=== PATIENT | male | born 1955 | race African-American/Black ===

== ENCOUNTER 2018-05-21 07:54 | Day surgery (SDC) | payer MEDICARE, MEDICAID ==
--- NOTE | 2018-05-18 11:25 | Opthalmology H&P ---
Ophthalmology H&P H&P Chief Complaint: decreased vision in right eye HPI Vision Affects Ability to: read, manage personal affairs HPI Narrative Blurry Vision Exam Visual Acuity: OD 20/100 OS 20/60 Tension: OD 16 OS 16 Eye Exam: normal OU: external exam, palpebral fissure-width, marginal reflex distance, levator function, corneas, anterior chambers, fundus exam; findings: lens - NS Cataract OD Assessment/Plan Treatment Plan: cataract extraction w/ lens implant Goals of Treatment: improvement of vision, enhance quality of life Attestation Attestation The risks and benefits of the surgery as well as alternative procedures were explained to the patient in detail. Aldo Hester MD May 18, 2018 11:25
--- NOTE | 2018-05-18 11:26 | Pre-Procedure Note/Attestation ---
Pre-Procedure Note/Attestation Complete Prior to Procedure Planned Procedure: right Procedure Narrative: Cataract Extraction With Intraocular Lens Implant Right Eye Indications for Procedure Pre-Operative Diagnosis: Nuclear Sclerotic/ Cortical Cataract Right Eye Attestation I attest that I discussed the nature of the procedure; its benefits; risks and complications; and alternatives (and the risks and benefits of such alternatives ), prior to the procedure, with the patient (or the patient's legal loss prevention representative). I attest that, if there was a reasonable possibility of needing a blood transfusion, the patient (or the patient's legal loss prevention representative) was given the [facility] standardized written summary, pursuant to the [employer] Blood Safety Act ([place] Health and Safety Code # 1645, as amended). I attest that I re-evaluated the patient just prior to the surgery and that there has been no change in the patient's H&P, except as documented below: Aldo Hester MD May 18, 2018 11:26
[2018-05-21] VITALS (7 sets, daily range): BP systolic 122–139; BP diastolic 71–95
[~2018-05-21] VITALS: Ht 165.1 cm; Wt 73.0 kg
[~2018-05-21 07:54] MED LIST: Akten 3.5% 1ml Btl RIGHT EYE ONE; BENAZEPRIL HCL10 MG ORAL; Dexamethasone 4mg/ml vial ONE; Maxitrol Opth Oint 3.5gm ONE; Pilocarpine 1% Opth 15ml Soln ONE; Pred Forte 1% Opth Susp 1ml ONE; Proparacaine 0.5% Opth Soln 15ml RIGHT EYE ONE; Tetracaine 0.5% Opth 4ml Soln RIGHT EYE ONE
[2018-05-21] MEDS ORDERED: BSS 500ml btl ONE (10:31)
[2018-05-21] MEDS ORDERED: Povidone-Iodine 5% opth solution ONE (10:31)
[2018-05-21] MEDS ORDERED: EPINEPHrine 1mg/1ml Amp ONE (10:31)
[2018-05-21] MEDS ORDERED: BSS 15ml BTL ONE (10:31)
[2018-05-21] MEDS ORDERED: Sodium Hyaluronate 14 mg/ml 0.85ml ONE (10:31)
[2018-05-21] MEDS: Diclofenac Sod 0.1% Op Soln RIGHT EYE SCH ×3 (12:01→12:15)
[2018-05-21] MEDS: Cyclopentolate 1% Opth Sol 2ml RIGHT EYE SCH ×3 (12:01→12:15)
[2018-05-21] MEDS: Tropicamide 1% Opth 15ml Soln RIGHT EYE SCH ×3 (12:01→12:16)
[2018-05-21] MEDS: Tobramycin Op Soln 0.3% 5ml RIGHT EYE SCH ×3 (12:01→12:16)
[2018-05-21] MEDS: Phenylephrine 10% Opth Soln 5ml RIGHT EYE SCH ×3 (12:01→12:15)
[2018-05-21] MEDS ORDERED: ADVAIR HFA 115-12 GM INH (12:04)
[2018-05-21] MEDS ORDERED: LR 1000ml 1,000 ML IVLG SCH (12:05)
--- NOTE | 2018-05-21 12:05 | Anethesia Preoperative Eval ---
Anesthesia Pre-op PMH/ROS General Date of Evaluation: May 21, 2018 Anesthesiologist: Saad ASA Score: ASA 2 Mallampati Score Class I : Soft palate, uvula, fauces, pillars visible Class II: Soft palate, uvula, fauces visible Class III: Soft palate, base of uvula visible Class IV: Only hard plate visible Mallampati Classification: Class II Surgeon: Kacie Diagnosis: Right cataract Surgical Procedure: Right cataract extraction with IOL Anesthesia History: none Family History: no anesthesia problems Allergies: Coded Allergies: No Known Allergies (Unverified , 05/21/18) Medications: see eMAR Patient NPO?: Yes NPO Date: May 20, 2018 NPO Time: 22:00 Past Medical History Cardiovascular: Reports: HTN; Denies: CAD, VA, valve dz, arrhythmia, other Pulmonary: Reports: asthma; Denies: COPD, MARCIE, other Gastrointestinal/Genitourinary: Denies: GERD, CRI, ESRD, other Neurologic/Psychiatric: Denies: dementia, CVA, depression/anxiety, TIA, other Endocrine: Denies: DM, hypothyroidism, steroids, other HEENT: Denies: cataract (L), cataract (R), glaucoma, [place] (L), [place] (R), other Hematology/Immune: Denies: anemia, DVT, bleeding disorder, other Musculoskeletal/Integumentary: Denies: OA, RA, DJD, DDD, edema, other PSxH Narrative: Left cataract sx Anesthesia Pre-op Phys. Exam Physician Exam Last Vital Signs Date Time Temp Pulse Resp B/P (MAP) Pulse Ox O2 Delivery O2 Flow Rate FiO2 05/21/18 11:58 98.0 70 18 124/80 97 Room Air Constitutional: NAD Cardiovascular: RRR Respiratory: CTA Airway Exam Mallampati Score: Class II MO: full ROM: full Anesthesia Pre-op A/P Labs see chart Studies Pre-op Studies: EKG - sr Risk Assessment & Plan Assessment: ASA II Plan: MAC Status Change Before Surgery: No Pre-Antibiotics Drug: N/A Mary Kate Abbott MD May 21, 2018 12:05
[2018-05-21] MEDS ORDERED: DiphenhydrAMINE 50mg/ml Inj IVP PRN (12:15)
[2018-05-21] MEDS ORDERED: LR 1000ml ONE (13:22)
[2018-05-21] MEDS ORDERED: fentaNYL 100 mcg/2 mL IV ONE (13:22)
[2018-05-21] MEDS ORDERED: Lidocaine 1% MPF 10mg/ml 5ml ONE (13:22)
--- NOTE | 2018-05-21 14:33 | Immediate Post-Op Evaluation ---
Immediate Post-Op Evalulation Immediate Post-Op Evalulation Procedure: Right cataract extraction with IOL Date of Evaluation: May 21, 2018 Time of Evaluation: 14:34 IV Fluids: 500 Blood Products: 0 Estimated Blood Loss: 0 Urinary Output: 0 Blood Pressure Systolic: 137 Blood Pressure Diastolic: 95 Pulse Rate: 76 Respiratory Rate: 16 O2 Sat by Pulse Oximetry: 100 Temperature (Fahrenheit): 97.4 Pain Score (1-10): 0 Nausea: No Vomiting: No Complications 0 Patient Status: awake, reacts, patent, none Hydration Status: adequate Drug: N/a Mary Kate Abbott MD May 21, 2018 14:33
--- NOTE | 2018-05-21 14:34 | 48 Hour Post Anesthesia Eval ---
Post Anesthesia Evaluation Procedure: Right cataract extraction with IOL Date of Evaluation: May 21, 2018 Airway: patent Nausea: No Vomiting: No Pain Intensity: 0 Hydration Status: adequate Cardiopulmonary Status: at baseline Mental Status/LOC: patient returned to baseline Post-Anesthesia Complications: 0 Follow-up care needed: ready to discharge Mary Kate Abbott MD May 21, 2018 14:34
--- NOTE | 2018-05-22 13:17 | Brief Operative Note ---
Immediate Post Operative Note Operative Note Chief Complaint: blurry vision Pre-op Diagnosis: Nuclear Sclerotic/ Cortical Cataract Right Eye Procedure: Phaco with IOL Post-op Diagnosis: Pseudophakia Post-op Diagnosis: same as pre-op Findings: consistent w/pre-op dx studies Surgeon: Kacie Anesthesiologist: Anamaria Specimen: none Complications: none Condition: stable Fluids: LR Estimated Blood Loss: none Drains: none Implant(s) used?: Yes Aldo Hester MD May 22, 2018 13:17
--- NOTE | 2018-05-22 13:18 | Operative Note - PDOC ---
Operative Note Operative Note Date of Operation/Procedure: May 21, 2018 Chief Complaint: blurry vision Pre-op Diagnosis: Nuclear Sclerotic/ Cortical Cataract Right Eye Procedure: Phaco with IOL Post-op Diagnosis: Pseudophakia Post-op Diagnosis: same as pre-op Operative Findings: consistent w/pre-op dx studies Surgeon: Kacie Anesthesiologist: Anamaria Specimen: none Complications: none Condition: stable Fluids: LR Estimated Blood Loss: none Drains: none Implant(s) used?: Yes Indications for Procedure cataract Description of Procedure This patient has been complaining visually significant cataract in the affected eye with the best corrected visual acuity under moderate glare conditions worse. The patient complains of difficulties with glare in performing activities of daily living and wants to manage personal affairs with comfort and accuracy and see well enough to move with safety at home and outdoors. The risks, benefits and alternatives of the procedure were discussed with the patient in the office prior to scheduling surgery. All questions from the patient were answered after the surgical procedure was explained in detail. The risks of the procedure as explained to the patient include, but are not limited to, pain, infection, bleeding, loss of vision, retinal detachment, need for further surgery, loss of lens nucleus, double vision, etc. Alternative procedures were discussed which include, to do nothing or seek a second opinion. Informed consent for this procedure was obtained from the patient. The patient was referred to a primary care physician for a cardiopulmonary clearance prior to surgery, after proper evaluation was done patient was properly scheduled for outpatient surgery. The patient was brought to the operating room where the anesthesiologist established I.V. lines and cardiac monitoring leads. Mild intravenous sedation was administered. The patient was then prepared with a 5% solution of povidone -iodine to the conjunctival fornix and lashes, and a 5% solution of povidone- iodine to the lids and periorbital skin. The patient was then draped in the usual sterile fashion. A lid speculum was then placed in the operative eye. A keratome blade was then used to create a biplanar incision into the anterior chamber. Viscoelastics was then instilled into the anterior chamber. A curvilinear capsulorrhexis was then fashioned with an utrata forceps. A BSS was used with G-27 cannula was used hydrodissection and hydrodelineation the lens nucleus. Paracentesis incision was made at 9 o'clock with sharp blade. The phacoemulsification unit, after being properly adjusted and tested, was then used to emulsify the lens nucleus and residual cortical material was aspirated with the irrigation and aspiration unit. Vioscoelastic n was then instilled into the anterior chamber. The corneal wound was then enlarged to the size of the optic with the liv keratome blade. The intraocular lens was then inspected for right power and size and thought to be satisfactory. Then the lens was gently placed in the capsular bag. Positioning within the capsular bag was confirmed by direct visualization. Optic centration was accomplished with a Sinskey hook. Viscoelastics was removed from the anterior chamber using the irrigation and aspiration unit. The corneal wound was then tested for leaks and none were found. The lid speculum were then removed. Sponge and needle counts were correct. An eye patch and shield were placed over the operative eye. The patient was taken to the recovery room in stable condition. There were no complications. The patient tolerated the procedure well. The patient was then transferred to the ambulatory surgery unit in stable and satisfactory condition , was given detailed written instructions and asked to follow up in the office the next day. Aldo Hester MD May 22, 2018 13:18
== END 2018-05-21 15:25 | disposition home or self-care (01) ==
LOC: SUR 07:54
DX: H25.11 Age-related nuclear cataract, right eye (principal); H25.011 Cortical age-related cataract, right eye; I10 Essential (primary) hypertension; J44.9 Chronic obstructive pulmonary disease, unspecified
CPT/HCPCS: 66984; J0171; J1100; J3010; V2632; 94003; 94150